=== PATIENT | female | born 1965 | race Caucasian/White ===

== ENCOUNTER 2016-04-29 05:17 | Inpatient (IN) | payer OTHER ==
[2016-04-14 16:20] LABS: HEMATOCRIT 40.7 % (37.0-47.0); HEMOGLOBIN 13.4 gm/dL (12.0-15.0); MCH 27.4 pg (26.0-34.0); RBC 4.9 mil/uL (4.20-5.00); RDW 14.5 % (10.5-14.5); WBC 8.1 thou/uL (4.0-11.0)
[2016-04-14 16:21] LABS: URINE BILIRUBIN NEGATIVE (Negative); URINE BLOOD NEGATIVE (Negative); URINE COLOR YELLOW; URINE GLUCOSE-RANDOM* NEGATIVE (Negative); URINE KETONES NEGATIVE (Negative); URINE LEUKOCYTES-REFLEX NEGATIVE (Negative); URINE PROTEIN (DIPSTICK) NEGATIVE (Negative); URINE SPECIFIC GRAVITY 1.025 (1.003-1.035); URINE UROBILINOGEN 0.2 E.U./dl (0.2-1.0)
[2016-04-14 16:32] LABS: CREATININE 0.7 mg/dL (0.6-1.3)
[2016-04-14 17:14] LABS: PROTIME 9.8 Seconds (9.3-11.4)
[2016-04-29] VITALS (7 sets, daily range): BP systolic 120–145; BP diastolic 58–79
[~2016-04-29] VITALS: Ht 162.6 cm; Wt 118.8 kg
--- NOTE | ~2016-04-29 | O ---
[facility] [place] [address] OPERATIVE REPORT Name: PACHECO DE LA PAZ Room #: 150-5 ADM IN M.R.#: [id number] Admission: 04/29/16 Attend Phys: Solomon Basilio MD Discharge: Date of : 63 Report #: [id number] THIS REPORT FOR: //name// CC: Rubio Basilio DATE OF SERVICE: 04/29/2016 PREOPERATIVE DIAGNOSES: 1. Left knee degenerative joint disease, severe. 2. Morbid obesity, body mass index 46.34. POSTOPERATIVE DIAGNOSES: 1. Left knee degenerative joint disease, severe. 2. Morbid obesity, body mass index 46.34. PROCEDURE: Left total knee arthroplasty. SURGEON: Solomon Basilio MD. LICENSING REGISTRATION EXAMINER: Raymond Irizarry, nurse practitioner. INDICATIONS FOR LICENSING REGISTRATION EXAMINER: During the course of operation, extensive manipulation, retraction and limb positioning was required. This was afforded to me by my medical office receptionist assistant. This was especially important in light of the patient's size, which did add an extra time to the procedure. ANESTHESIA: General. INDICATION: See hospital history and physical. IMPLANTS UTILIZED: Used a DePuy PFC knee system. We used a cruciate retaining femoral component size 3, size 2.5 tibial tray with a 10 mm insert and a 35 mm oval dome patella. DESCRIPTION OF PROCEDURE: After adequate general anesthesia had been obtained, the patient's left lower extremity was prepped and draped in the usual meticulous sterile fashion. Limb was exsanguinated with gravity, tourniquet inflated to 350 torr. An anterior midline incision was made, subQ divided sharply. Hemostasis obtained with cautery. Medial parapatellar incision was made. Infrapatellar fat pad excised. Medial release performed. Drill was used to drill the distal femur. This was enlarged, irrigated and suctioned and the intramedullary guide placed the full length of the femur. Distal femoral cutting guide pinned to appropriate height, distal femoral cut was made. Size 3 was appropriate size for this patient. We marked the distal femur, impacted the [address] [address] OPERATIVE REPORT Name: BRAINPACHECO Room #: 150-5 ADM IN M.R.#: [id number] Admission: 04/29/16 Attend Phys: Solomon Basilio MD Discharge: Date of : 63 Report #: [id number] cutting guide into place and the anterior, posterior and chamfer cuts were made. [place]geur was used to remove additional osteophytes. At this time, the ACL was transected, tibia translated anteriorly, menisci were excised. Drill was used to drill central portion of the tibia. This hole was enlarged, irrigated, suctioned, and the intramedullary guide placed the full length of the tibia. Proximal tibia cutting guide placed at appropriate height. Proximal tibia cut was made, 2.5 tray gave us the best coverage on the tibia. With trial components in position and with 10 spacer, she had the best flexion and extension gap. She was slightly more tight medially and we used a pie crusting technique to release and medial collateral ligament, this resulted in improved balance. Patella tracked normally. At this time, the patella was measured, cutting guide clamped into place, patellar cut was made, 35 template gave us the best coverage. Pedicles were drilled, trial component put in position and it tracked normally. At this time, the tibial tray rotation marked, distal femur drilled. Trial components were removed. The tibial keel cuts were made. The knee was irrigated with both pulse lavage and antibiotic irrigation. Bone plugs were placed proximal tibia and distal femur. The cement was vacuum mixed and when it reached the appropriate consistency, the knee was thoroughly dried, the tibial tray was cemented in place. Excess cement was removed. The polyethylene was impacted in place and the femur impacted in place. The knee was taken out to 30 degrees of flexion with uniform compression placed across components. Patellar button was then cemented into place and again, excess cement was removed. The drains were placed superolaterally both deep and superficial. The knee was taken out to 30 degrees of flexion, uniform compression placed across components. Irrigation was allowed to rest in the wound until the cement fully cured. When it had done so, the knee was irrigated, dried thoroughly, inspected. The retinacular layer closed with combination of interrupted [id number] #1 Vicryl as well as running #1 Tevdek. SubQ closed with 2-0 Monocryl in multiple layers due to the patient's size. Skin closed with keith. Sterile compressive dressing applied. Tourniquet deflated. By: [id number] Solomon Basilio MD /nt
[~2016-04-29 05:17] MED LIST: APAP650 PO; BENTYL 10 MG CA10 MG PO; LORTAB 5 MG/5001 TA1; MOBIC15 MG PO; TRAMADOL 50 MG50 MG PO
[2016-04-30] VITALS: BP 140/48
[2016-04-30 04:00] VITALS: BP 145/56
[2016-04-30 05:38] LABS: HEMATOCRIT 34.2 % (37.0-47.0); HEMOGLOBIN 11.6 gm/dL (12.0-15.0); MCH 28.1 pg (26.0-34.0); MCHC 33.8 g/dL (28.0-37.0); MCV 83.2 fL (80.0-100.0); RBC 4.11 mil/uL (4.20-5.00); RDW 14.4 % (10.5-14.5); WBC 9.6 thou/uL (4.0-11.0)
[2016-04-30 08:01] VITALS: BP 148/51
[2016-04-30 20:00] VITALS: BP 161/61
[2016-05-01 04:00] VITALS: BP 151/65
[2016-05-01 05:19] LABS: HEMATOCRIT 32.6 % (37.0-47.0); MCHC 33.6 g/dL (28.0-37.0); MCV 83.5 fL (80.0-100.0); RBC 3.91 mil/uL (4.20-5.00); WBC 11.9 thou/uL (4.0-11.0)
[2016-05-01 07:19] VITALS: BP 148/68
[2016-05-01 15:55] LABS: URINE BILIRUBIN NEGATIVE (Negative); URINE BLOOD TRACE (Negative); URINE COLOR YELLOW; URINE GLUCOSE-RANDOM* NEGATIVE (Negative); URINE KETONES NEGATIVE (Negative); URINE LEUKOCYTES-REFLEX NEGATIVE (Negative); URINE PROTEIN (DIPSTICK) NEGATIVE (Negative); URINE SPECIFIC GRAVITY <= 1.005 (1.003-1.035); URINE UROBILINOGEN 0.2 E.U./dl (0.2-1.0)
[2016-05-01 16:11] VITALS: BP 148/65
[2016-05-01 19:05] VITALS: BP 133/66
[2016-05-02 03:40] VITALS: BP 139/69
[2016-05-02 04:09] LABS: HEMATOCRIT 29.9 % (37.0-47.0); HEMOGLOBIN 10.2 gm/dL (12.0-15.0); MCH 28.5 pg (26.0-34.0); MCHC 34.3 g/dL (28.0-37.0); MCV 83.2 fL (80.0-100.0); RBC 3.59 mil/uL (4.20-5.00); RDW 14.3 % (10.5-14.5); WBC 9.9 thou/uL (4.0-11.0)
[2016-05-02 07:27] VITALS: BP 124/70
[2016-05-02] MEDS ORDERED: MS CONTIN 30 MG30 MG PO (08:42)
[2016-05-02] MEDS ORDERED: PERCOCET 10-321 EACH PO (08:42)
[2016-05-02] MEDS ORDERED: XARELTO10 MG PO (08:42)
[2016-05-02 10:18] VITALS: BP 124/70
== END 2016-05-02 12:30 | disposition home health service (06) | DRG 470 ==
LOC: 5S 05:17 → TBA 05:17 → PRE 08:58 → 5S 12:07 → PRE 13:00 → 5S 05-02 12:30
PROVIDERS: Family Medicine; Orthopaedic Surgery
PROC: 0SRD0J9 Replacement of Left Knee Joint with Synthetic Substitute, Cemented, Open Approach (ICD-10-PCS; principal; 2016-04-29)
DX: M17.12 Unilateral primary osteoarthritis, left knee (principal); Z68.42 Body mass index [BMI] 45.0-49.9, adult; E66.01 Morbid (severe) obesity due to excess calories; G47.30 Sleep apnea, unspecified; K21.9 Gastro-esophageal reflux disease without esophagitis; D86.9 Sarcoidosis, unspecified; Z96.651 Presence of right artificial knee joint; Z79.899 Other long term (current) drug therapy; Z90.49 Acquired absence of other specified parts of digestive tract; Z85.828 Personal history of other malignant neoplasm of skin
CPT/HCPCS: 10785; 50010; 50101; 50415; 50612; 50953; 50954; 51130; 51225; 51320; 51412; 51771; 52001; 52282; 53000; 53078; 53364; 56525; 56527; 62110; 62900; 64042; 70005